=== PATIENT | male | born 1945 | race Caucasian/White ===

== ENCOUNTER 2025-07-27 10:42 | Outpatient (CLI) | payer MEDICARE, BC ==
--- NOTE | 2025-07-27 17:36 | CARDIOLOGY REPORT ---
APPROVED REPORT EXAM: Comprehensive 2D, Doppler, and color-flow Echocardiogram. Patient Location: OUT-PATIENT Blood Pressure: 150/61 mmHg Heart Rate: 59 bpm Rhythm: ATRIAL FIBRILLATION Indications ATRIAL FLUTTER [employer] Teacher: Isabela Metzger MD ([place]) Previous echo: none available 2D Dimensions RVDd 3.4 cm IVSd 1.6 (0.7-1.1cm) LVDd 5.0 cm PWd 1.2 (0.7-1.1cm) IVSs 1.6 (0.8-1.2cm) LVDs 3.1 (2.5-4.0cm) PWs 2.2 (0.8-1.2cm) LVOT Diameter 1.94 (1.8-2.4cm) LVEF(%) 67.5 (>50%) Ao Asc Diam. 3.75 cm FS (%) 37.6 % SV 79.3 ml M-Mode Dimensions Left Atrium(MM) 5.68 (2.5-4.0cm) Aortic Root 3.37 (2.2-3.7cm) Aortic Cusp Exc 1.85 (1.5-2.0cm) MV EPSS 0.4 (<0.5cm) FS (%) 43 % ESV(Teich) 52.1 ml Aortic Valve AoV Peak Dylan. 191.9 cm/s AoV VTI 45.2 cm AO Peak GR. 14.7 mmHg AO Mean GR. 8 mmHg LVOT VTI 29.96 cm LVOT Peak Dylan. 113.9 cm/s GLORIA (VTI) 2.01 cm2 AV DI 0.66 % Mitral Valve MV E Velocity 113.4 cm/s MV DECEL TIME 237 ms MV A Velocity 48.8 cm/s MV PHT 64 ms E/A Ratio 2.3 MVA (PHT) 3.41 cm2 MV ERO 13.63 mm2 MR VMax 600.6 cm/s TDI E/Medial E' 34.0 Tricuspid Valve TR P. Velocity 331 cm/s RAP ESTIMATE 5 mmHg TR Peak Gr. 44 mmHg RVSP 49 mmHg Pulmonary Vein S2 Velocity 54.37 cm/s PVa Duration 114 msec LEFT VENTRICLE Normal LV size and function. Moderate concentric hypertrophy. LVEF is 65-70%. RIGHT VENTRICLE RV is mildly dilated with normal systolic function. RVSP is estimated at 49 mmHg. ATRIA Left atrium is severely dilated. Right atrium appears mildly dilated. AORTIC VALVE Trileaflet AV appears mildly sclerotic without stenosis. Trivial insufficiency by color and spectral flow Doppler. MITRAL VALVE Mild MV annular calcification without stenosis. Mild multijet regurgitation by color and spectral flow Doppler. TRICUSPID VALVE TV appears structurally normal with mild regurgitation by color and spectral flow Doppler. PULMONIC VALVE Normal PV without stenosis, physiologic insufficiency by color and spectral flow Doppler. GREAT VESSELS Aortic root is normal in size. Ascending aorta is dilated. IVC is normal in size and collapses greater than 50% with inspiration. PERICARDIUM Normal pericardium. No effusion. Other Information Study Quality: Adequate Conclusion Normal LV size and function. Moderate concentric hypertrophy. LVEF is 65-70%. RV is mildly dilated with normal systolic function. RVSP is estimated at 49 mmHg. Left atrium is severely dilated. Right atrium appears mildly dilated. Trileaflet AV appears mildly sclerotic without stenosis. Trivial insufficiency by color and spectral flow Doppler. Mild MV annular calcification without stenosis. Mild multijet regurgitation by color and spectral flow Doppler. TV appears structurally normal with mild regurgitation by color and spectral flow Doppler. Aortic root is normal in size. Ascending aorta is dilated. Normal pericardium. No effusion.
== END 2025-07-27 23:59 | disposition home or self-care (01) ==
LOC: CARD DIAG 10:42
PROVIDERS: ATTEND Internal Medicine Cardiovascular Disease
DX: I08.3 Combined rheumatic disorders of mitral, aortic and tricuspid valves (principal); I48.92 Unspecified atrial flutter; I51.7 Cardiomegaly; I77.819 Aortic ectasia, unspecified site
CPT/HCPCS: 93306